=== PATIENT | female | born 1960 | race Caucasian/White ===

== ENCOUNTER 2021-04-19 09:31 | Emergency (ER) | payer MEDICAID ==
[~2021-04-19] VITALS: Ht 154.9 cm; Wt 90.9 kg
[2021-04-19 09:34] VITALS: BP 133/62
[2021-04-19] MEDS ORDERED: METF-960 PO (09:37)
[2021-04-19] MEDS ORDERED: LISI2.5T91 PO (09:37)
[2021-04-19] MEDS ORDERED: SIMV-260 PO (09:38)
== END 2021-04-19 10:55 | disposition home or self-care (01) ==
LOC: EMS 09:35
DX: S81.811A Laceration without foreign body, right lower leg, initial encounter (principal); L08.9 Local infection of the skin and subcutaneous tissue, unspecified; E11.9 Type 2 diabetes mellitus without complications; I10 Essential (primary) hypertension; Z79.84 Long term (current) use of oral hypoglycemic drugs; W07.XXXA Fall from chair, initial encounter; Y93.89 Activity, other specified; Y92.89 Other specified places as the place of occurrence of the external cause; Y99.8 Other external cause status
CPT/HCPCS: 99283